=== PATIENT | male | born 1955 ===

== ENCOUNTER 2024-12-06 05:36 | Day surgery (SDC) | payer OTHER ==
[2024-12-06] MEDS ORDERED: FLUMAZENIL 0.5 MG/5 ML ML IV STA (08:42)
[2024-12-06] MEDS ORDERED: MIDAZOLAM HCL 2 MG/2 ML VIAL IV ONE (08:45)
[2024-12-06] MEDS ORDERED: fentaNYL CITRATE 50 MCG/ML AMPUL IV PUSH ONE (08:45)
[2024-12-06] MEDS ORDERED: ONDANSETRON HCL 2 MG/ML VIAL IV ONE (08:45)
[2024-12-06] MEDS ORDERED: DIPHENHYDRAMINE HCL 50 MG/ML VIAL 1ML IV ONE (08:45)
== END 2024-12-06 10:25 | disposition home or self-care (01) ==
LOC: AMB-ENDOS 05:36
PROVIDERS: ATTEND Colon & Rectal Surgery
DX: D12.2 Benign neoplasm of ascending colon (principal); D12.4 Benign neoplasm of descending colon; K63.5 Polyp of colon

== ENCOUNTER 2025-07-09 09:35 | Day surgery (SDC) | payer OTHER ==
[2025-07-09] MEDS ORDERED: NALOXONE HCL 0.4 MG/ML AMPUL IV STA (14:06)
[2025-07-09] MEDS ORDERED: FLUMAZENIL 0.5 MG/5 ML ML IV STA (14:06)
[2025-07-09] MEDS ORDERED: MIDAZOLAM HCL 2 MG/2 ML VIAL IV ONE (14:15)
[2025-07-09] MEDS ORDERED: fentaNYL CITRATE 50 MCG/ML AMPUL IV PUSH ONE (14:15)
[2025-07-09] MEDS ORDERED: DIPHENHYDRAMINE HCL 50 MG/ML VIAL 1ML IV ONE (14:15)
[2025-07-09] MEDS ORDERED: ONDANSETRON HCL 2 MG/ML VIAL IV ONE (14:15)
== END 2025-07-09 15:55 | disposition home or self-care (01) ==
LOC: AMB-ENDOS 09:35
PROVIDERS: ATTEND Colon & Rectal Surgery
DX: D12.2 Benign neoplasm of ascending colon (principal); D12.5 Benign neoplasm of sigmoid colon; K63.5 Polyp of colon; K57.30 Diverticulosis of large intestine without perforation or abscess without bleeding